=== PATIENT | female | born 1960 | race Caucasian/White ===

== ENCOUNTER 2020-08-18 12:13 | Emergency (ER) | payer MEDICARE, OTHER, SELFPAY ==
[2020-08-18 12:56] VITALS: BP 105/88; PULSE 90; RESP 18; TEMP 37; O2SAT 98
[2020-08-18 13:10] LABS: Basophils Percent Auto 0.3 % (0.2-1.2); Eosinophils Percent Auto 0.4 % (0-4.4); Hematocrit 40.4 % (37.0-47.0); Hemoglobin 13.2 g/dL (12.0-15.0); Immature Granulocyte Absolute 0.02 K/mm3 (0.00-0.031); Immature Granulocyte Percent A 0.3 % (0-0.5); Lymphocytes Absolute Auto 1.11 K/mm3 (0.9-3.2); Lymphocytes Percent Auto 15.5 % (18.3-44.2); Mean Corpuscular HGB Conc 32.7 g/dl (32-36); Mean Corpuscular Hemoglobin 31.4 pg (26-34); Mean Corpuscular Volume 96.2 fl (80-100); Mean Platelet Volume 9.1 fl (7.4-10.4); Monocytes Absolute Auto 0.3 K/mm3 (0.1-0.6); Monocytes Percent Auto 3.8 % (2.6-8.5); Neutrophils Absolute Auto 5.7 K/mm3 (1.3-6.7); Neutrophils Percent Auto 79.7 % (45.5-73.1); Platelet Count Result 299 k/mm3 (150-375); Red Cell Distribution Width 12.7 % (11.5-14.5); White Blood Count 7.2 K/mm3 (4.5-10.0)
[2020-08-18 13:12] LABS: Add Urine Microscopic? NO; Appearance Urine Clear (Clear); Bilirubin Urine Negative (Negative); Blood Urine Negative (Negative); Color Urine Colorless (Yellow); Glucose Urine UA Negative (Negative); Ketones Urine Negative (Negative); Leukocyte Esterase Ur Negative LEU/UL (Negative); Nitrate Urine Negative (Negative); Protein Urine Negative (Negative); Urobilinogen Urine Negative mg/dL (<2.0)
[2020-08-18 13:21] LABS: Alanine Aminotransferase 21 U/L (4-35); Albumin Level 4.6 g/dL (3.5-5.1); Alkaline Phosphatase 77 U/L (38-126); Anion Gap 10 mmol/L (8-16); Aspartate Amino Transferase 26 U/L (14-36); Bilirubin,Total 0.6 mg/dL (0.2-1.3); Blood Urea Nitrogen 13 mg/dL (7-17); Calcium 9.2 mg/dL (8.4-10.2); Carbon Dioxide 27 mmol/L (22-30); Chloride 104 mmol/L (98-107); Estimated Glomerular Filt Rate > 60; Glucose 106 mg/dL (65-105); Lipase 67 U/L (23-300); Potassium 3.9 mmol/L (3.4-5.0); Sodium 141 mmol/L (137-145)
[2020-08-18 13:23] LABS: Specific Grav Ur 1.003 (1.001-1.035)
[2020-08-18 15:55] VITALS: BP 128/75; PULSE 88; RESP 18; O2SAT 98
--- NOTE | 2020-08-18 16:40 | ED.ABDPAIN ---
HPI - Abdominal Pain General Chief Complaint: Abdominal Pain Stated Complaint: Lower ABD Pain, Vomiting Time Seen by Provider: 08/18/20 15:47 Source: patient Mode of arrival: ambulatory Limitations: no limitations History of Present Illness HPI narrative: 60 years old white female presents with right lower quadrant pain started December 2019. Patient is from [place], came to visit with her daughter for the last 7 days. Patient had 6 CAT scan of the abdomen and pelvis since December 2019. Because of the unknown reason for patient complaint, patient had appendectomy to see how it goes. With no improvement. Later patient have cleaning a lot of scar inside her abdomen, without significant improvement. Today patient complaining of nausea and frequent vomiting, unable to keep anything down including food which started 2 days ago. Patient denies any fever, chills, chest pain, back pain, sore throat, headache. History of cholecystectomy, appendectomy and hysterectomy. History of IBS, endometriosis. Patient does not smoke or drink or uses drugs Related Data Allergies Allergy/AdvReac Type Severity Reaction Status Date / Time No Known Allergies Allergy Mild Verified 02/08/08 19:58 Review of Systems Review of Systems: Narrative: CONSTITUTIONAL: Denies fever, chills, or sweats. EYES: Denies visual changes, redness, or discharge. ENT: Denies rhinorrhea, congestion, sore throat, or otalgia. CARDIOVASCULAR: Denies chest pain, palpitations, or edema. RESPIRATORY: Denies cough or dyspnea. GASTROINTESTINAL: Right lower quadrant pain with nausea and vomiting GENITOURINARY: Denies dysuria or hematuria. SKIN: Denies rash or itching. MUSCULOSKELETAL: Denies back pain, joint pain, or myalgia. NEUROLOGIC: Denies headache, numbness, or weakness. PSYCHIATRIC: Denies anxiety or depression. PMFSH Past Medical History Medical History (Updated 08/18/20 @ 19:19 by Stanley Meade MD) Cholecystectomy planned Endometriosis Hyperlipidemia IBS (irritable bowel syndrome) Post hysterectomy menopause Social History Social History (Updated 08/18/20 @ 16:47 by Stanley Meade MD) Social History: Patient denies smoking, drinking or using drugs Second hand tobacco smoke exposure: No Exam Narrative: Exam Narrative: General appearance: Well-developed, well-nourished Skin: Normal color Head: Normocephalic, nontraumatic Eyes: Clear conjunctiva ENT: Oropharynx normal, ears normal, nose normal Neck: Supple, nontender Chest and respiratory: Airway patent, no respiratory distress, no accessory muscle use Heart: Regular rate/rhythm Abdomen: Soft, moderate tenderness right lower quadrant, no organomegaly, quiet bowel sounds Vascular: Normal peripheral pulses, normal capillary refill. Musculoskeletal: Normal range of motion, nontender back Neurologic: Alert and oriented ?3, [employer] is normal as tested, no gross motor deficit Course Course Emergency Course: Improving Reevaluation(s) Reevaluation #1: Slight improvement, still nauseated. Patient was able to keep fluid down. Patient was offered to be admitted to the hospital for observation and possible pain medication. She declined. Patient keeps telling me that she had 6 CAT scans since December and she had this kind of pain at the right lower quadrant and nobody knows what to go known and nobody is able to treat her. She should have gone to a bigger hospital.. Patient declined getting another CAT scan. Date: 08/18/20 Time: 19:16 Vital Signs Vital signs: Vital Signs Temperature 37.0 C 08/18/20 12:56 Pulse Rate 90 08/18/20 12:56 Respiratory Rate 18 08/18/20 12:56 Blood Pressure 105/88 08/18/20 12:56 Pulse Oximetry 98 08/18/20
[2020-08-18] MEDS: HYDROmorphone HCL INJ (*CRX) 1 MG/ML SYR 0.5 MG IV PUSH (16:47)
[2020-08-18] MEDS: ONDANSETRON INJ 4 MG/2 ML VIAL IV PUSH (16:48)
[2020-08-18] MEDS: SODIUM CHLORIDE 0.9% IV 1,000 ML 999 ML IV CONT (16:48)
[2020-08-18 18:38] LABS: Lactic Acid Reflex 0.6 mmol/L (0.7-2.1)
[2020-08-18 19:45] VITALS: BP 126/70; PULSE 85; RESP 16; O2SAT 100
== END 2020-08-18 19:47 | disposition home or self-care (01) ==
PROVIDERS: Emergency Medicine; Emergency Provider Emergency Medicine; PCP Internal Medicine
DX: R10.31 Right lower quadrant pain (principal); N80.9 Endometriosis, unspecified; E78.5 Hyperlipidemia, unspecified; K58.9 Irritable bowel syndrome, unspecified
CPT/HCPCS: 36415; 80053; 81003; 83605; 83690; 85025; 96361; 96374; 96375; 99284; J1170; J2405; J7030